=== PATIENT | male | born 2000 | race Two or more races ===

== ENCOUNTER 2018-02-16 08:40 | Emergency (ER) | payer SELFPAY ==
--- NOTE | 2018-02-16 09:29 | ER Document Report ---
ED GI/ - General Chief Complaint: Nose Bleed Stated Complaint: VOMITING BLOOD, NOSE BLEED Time Seen by Provider: 02/16/18 09:15 Notes: Patient is a 17-year-old male complaining of vomiting blood and nosebleeds. Patient reports that he has been intermittently vomiting 3 weeks and noted some bright red blood in the emesis on several occasions and has nosebleeds after the vomiting. Patient admits to heavy binge drinking for the last 3 months. Reports he drinks 1/2 gallon to gallon of alcohol daily. He last drank last night. Patient is not interested in detox. He denies any abdominal pain or fever. Patient has no significant past medical history TRAVEL OUTSIDE OF THE [place] IN LAST 30 DAYS: No - HPI Patient complains to provider of: Vomiting Timing/Duration: Intermittent Quality of pain: No pain Associated symptoms: Blood in emesis. denies: Blood in stool, Diarrhea, Dizzy, Lightheaded Exacerbated by: Denies Relieved by: Denies Similar symptoms previously: Yes Recently seen / treated by doctor: No - Related Data Allergies/Adverse Reactions: No Known Allergies Allergy (Unverified 02/25/14 15:51) Past Medical History - General Information source: Patient - Social History Smoking Status: Former Smoker Frequency of alcohol use: Heavy Drug Abuse: None Lives with: Family Family History: Reviewed & Not Pertinent Patient has suicidal ideation: No Patient has homicidal ideation: No - Medical History Medical History: Negative Renal/ Medical History: Denies: Hx Peritoneal Dialysis Psychiatric Medical History: Reports: Hx Attention Deficit Hyperactivity Disorder, Hx Obsessive Compulsive Disorder Past Surgical History: Reports: Hx Orthopedic Surgery - Immunizations Immunizations up to date: Yes Hx Diphtheria, Pertussis, Tetanus Vaccination: Yes Review of Systems - Review of Systems Constitutional: No symptoms reported EENT: No symptoms reported Cardiovascular: No symptoms reported Respiratory: No symptoms reported Gastrointestinal: No symptoms reported Genitourinary: No symptoms reported Male Genitourinary: No symptoms reported Musculoskeletal: No symptoms reported Skin: No symptoms reported Hematologic/Lymphatic: No symptoms reported Neurological/Psychological: No symptoms reported Physical Exam - Vital signs Vitals: Temp Pulse Resp BP Pulse Ox 98.5 F 81 12 137/98 H 98 02/16/18 08:47 02/16/18 08:47 02/16/18 08:47 02/16/18 08:47 02/16/18 08:47 Interpretation: Normal - General General appearance: Appears well, Alert - HEENT Head: Normocephalic, Atraumatic Eyes: Normal Pupils: PERRL - Respiratory Respiratory status: No respiratory distress Chest status: Nontender Breath sounds: Normal Chest palpation: Normal - Cardiovascular Rhythm: Regular Heart sounds: Normal auscultation Murmur: No - Abdominal Inspection: Normal Distension: No distension Bowel sounds: Normal Tenderness: Nontender Organomegaly: No organomegaly - Back Back: Normal, Nontender - Extremities General upper extremity: Normal inspection, Nontender, Normal color, Normal ROM , Normal temperature General lower extremity: Normal inspection, Nontender, Normal color, Normal ROM , Normal temperature, Normal weight bearing. No: Mariano's sign - Neurological Neuro grossly intact: Yes Cognition: Normal Orientation: AAOx4 Clarita Coma Scale Eye Opening: Spontaneous Ho Coma Scale Verbal: Oriented [place] Coma Scale Motor: Obeys Commands Ho Coma Scale Total: 15 Speech: Normal Motor strength normal: LUE, RUE, LLE, RLE Sensory: Normal - Psychological Associated symptoms: Normal affect, Normal mood - Skin Skin Temperature: Warm Skin Moisture: Dry Skin Color: Normal Course - Re-evaluation Re-evalutation: 02/16/18 09:28 After performing a Medical Screening Examination, I estimate there is LOW risk for ACUTE APPENDICITIS, BOWEL OBSTRUCTION, ACUTE CHOLECYSTITIS, PERFORATED DIVERTICULITIS, INCARCERATED HERNIA, PANCREATITIS, TESTICULAR TORSION or PERFORATED ULCER, thus I consider the discharge disposition reasonable. Also, there is no evidence or peritonitis, sepsis, or toxicity. I have reevaluated this patient multiple times and no significant life threatening changes are noted. The patient and I have discussed the diagnosis and risks, and we agree with discharging home with close follow-up with the understanding that symptoms and presentations can change. We also discussed returning to the Emergency Department immediately if new or worsening symptoms occur. We have discussed the symptoms which are most concerning (e.g., bloody stool, fever, changing or worsening pain, intractable vomiting - standard verbal up date) that necessitate immediate return. 02/16/18 10:36 Labs are significant for a white blood cell count of 3.8, sodium of 145.2, elevated liver functions with AST of 149, ALT of 296. These results were reviewed with Dr. Funez. The results reviewed with the patient as well. Detox was again offered to the patient who declines at this time. I highly encourage the patient to stop drinking and follow-up with detox. Patient is afebrile, abdominal exam is unremarkable and he is tolerating p.o. fluids without any difficulty. Patient is stable for discharge - Vital Signs Vital signs: Temp Pulse Resp BP Pulse Ox 98.5 F 81 12 137/98 H 98 02/16/18 08:47 02/16/18 08:47 02/16/18 08:47 02/16/18 08:47 02/16/18 08:47 - Laboratory Result Diagrams: 02/16/18 09:31 02/16/18 09:31 Laboratory results interpreted by me: 02/16/18 02/16/18 09:31 09:31 WBC 3.8 L Sodium 145.2 H Direct Bilirubin 0.5 H AST 149 H ALT 296 H Discharge - Discharge Clinical Impression: Alcohol abuse, Elevated liver function tests Hematemesis/vomiting blood Qualifiers: Nausea presence: unspecified Qualified Code(s): K92.0 - Hematemesis Condition: Stable Disposition: HOME, SELF-CARE Instructions: Acid-Suppressing Medication ([facility]), Upper Gastrointestinal Bleeding ([facility]), Alcoholic Hepatitis ([facility]), Chronic Alcoholism ([facility]) Additional Instructions: Your symptoms are most likely caused from damage to your liver from your excessive alcohol consumption I highly recommend alcohol detox for you. There are local programs available I am prescribing an acid reducing medicine for your stomach Return to the ER for any worsening of your status Prescriptions: Famotidine [Pepcid 20 mg Tablet] 20 mg PO BID #20 tablet
[2018-02-16 10:06] LABS: ABSOLUTE MONOCYTES (AUTO) 0.4 10^3/uL (0.1-1.4); ABSOLUTE NEUT (AUTO) 2.3 10^3/uL (1.7-8.2); BASOPHILS % (AUTO) 0.8 % (0-2); EOSINOPHILS % (AUTO) 1.2 % (0-6); HEMATOCRIT 46.3 % (37.9-51.0); HEMOGLOBIN 15.7 g/dL (13.5-17.0); LYMPHOCYTES % (AUTO) 26.4 % (13-45); MEAN CORPUSCULAR HEMOGLOBIN 30.7 pg (27.0-33.4); MEAN CORPUSCULAR VOLUME 90 fl (80-97); PLATELET COUNT 208 10^3/uL (150-450); RED BLOOD COUNT 5.12 10^6/uL (4.35-5.55); RED CELL DISTRIBUTION WIDTH 13.9 % (11.5-14.0); SEGMENTED NEUTROPHILS % (AUTO) 61.6 % (42-78); TOTAL CELLS COUNTED % (AUTO) 100 %; WHITE BLOOD COUNT 3.8 10^3/uL (4.0-10.5)
[2018-02-16 10:21] LABS: ALANINE AMINOTRANSFERASE 296 U/L (10-40); ALKALINE PHOSPHATASE 65 U/L (65-260); ANION GAP 12 (5-19); ASPARTATE AMINO TRANSFERASE 149 U/L (10-45); BILIRUBIN,DIRECT 0.5 mg/dL (0.0-0.4); BILIRUBIN,TOTAL 0.8 mg/dL (0.2-1.3); BLOOD UREA NITROGEN 16 mg/dL (7-20); CALCIUM 9.5 mg/dL (8.4-10.2); CARBON DIOXIDE 28 mmol/L (22-30); CHLORIDE 105 mmol/L (98-107); GLUCOSE 82 mg/dL (75-110); LIPASE 39.7 U/L (23-300); POTASSIUM 4.2 mmol/L (3.6-5.0); SODIUM 145.2 mmol/L (137-145); TOTAL PROTEIN 7.8 g/dL (6.3-8.2)
[2018-02-16 10:51] VITALS: BP 143/97
== END 2018-02-16 10:50 | disposition home or self-care (01) ==
LOC: ER 08:40
DX: K92.0 Hematemesis (principal); F10.10 Alcohol abuse, uncomplicated; R79.89 Other specified abnormal findings of blood chemistry; R04.0 Epistaxis; Z87.891 Personal history of nicotine dependence
CPT/HCPCS: 36415; 80053; 83690; 85025; 99283